=== PATIENT | female | born 1930 | race Asian ===

== ENCOUNTER 2017-02-05 12:34 | Emergency (ER) | payer MEDICARE, OTHER ==
[~2017-02-05] VITALS: Ht 152.4 cm; Wt 47.4 kg
[~2017-02-05 12:34] MED LIST: BYSTOLIC5 M1 PO; DIOVAN160 MG PO; OYSTER SHELL CA1 T11 PO; SIMVASTATIN10 M1 PO; SYNTHROID0.05 MG PO; UNKNOWN BP MED
[2017-02-05 19:15] VITALS: BP 224/125
== END 2017-02-05 19:15 | disposition home or self-care (01) ==
LOC: ED 12:34
DX: K59.00 Constipation, unspecified (principal); K64.4 Residual hemorrhoidal skin tags; E78.00 Pure hypercholesterolemia, unspecified; I10 Essential (primary) hypertension